=== PATIENT | male | born 1960 | race Caucasian/White ===

== ENCOUNTER 2017-10-01 19:25 | Emergency (ER) | payer OTHER ==
[~2017-10-01] VITALS: Ht 170.2 cm; Wt 89.4 kg
[2017-10-01 19:34] VITALS: BP 155/101
[2017-10-01] MEDS ORDERED: TESTONE CI200 MG/1 M IM (19:37)
[2017-10-01] MEDS ORDERED: FLEXERIL PO (20:07)
[2017-10-01] MEDS ORDERED: IBUPROFEN 400400 M1 PO (20:07)
[2017-10-01] MEDS ORDERED: NORCO 5-325 TA1 EACH PO (20:07)
== END 2017-10-01 20:55 | disposition home or self-care (01) ==
LOC: M.ERS 19:25
DX: M19.012 Primary osteoarthritis, left shoulder (principal); H54.62 Unqualified visual loss, left eye, normal vision right eye

== ENCOUNTER → 2021-06-17 | Outpatient (CLI) | payer OTHER ==
[~2021-06-17] MED LIST: FLEXERIL PO; IBUPROFEN 400400 M1 PO; NORCO 5-325 TA1 EACH PO; TESTONE CI200 MG/1 M IM
== END ==
LOC: M.RAD 15:43
PROVIDERS: ATTEND Internal Medicine
DX: M47.816 Spondylosis without myelopathy or radiculopathy, lumbar region (principal); G89.29 Other chronic pain

== ENCOUNTER → 2021-07-14 | Outpatient (CLI) | payer OTHER | LOC: M.RAD 08:56 | PROVIDERS: ATTEND Internal Medicine | DX: T15.9 Foreign body on external eye, part unspecified (principal); X58.XXXS Exposure to other specified factors, sequela ==

== ENCOUNTER → 2021-07-22 | Outpatient (CLI) | payer OTHER | LOC: M.MRI 10:49 | PROVIDERS: ATTEND Internal Medicine | DX: M47.816 Spondylosis without myelopathy or radiculopathy, lumbar region (principal); M48.061 Spinal stenosis, lumbar region without neurogenic claudication; G89.29 Other chronic pain ==